=== PATIENT | female | born 1970 | race Caucasian/White ===

== ENCOUNTER → 2016-08-09 | Outpatient (CLI) | payer BC ==
[~2016-08-09] MED LIST: PRENTAB26 PO
--- NOTE | 2016-08-09 12:32 | MAMMOGRAPHY REPORT ---
ULTRASOUND OF LEFT BREAST: 08/09/2016 CLINICAL HISTORY: 45-year-old woman presents for follow-up of a probably benign 2-3 mm hypoechoic ci rcumscribed mass in the 1:00 left breast. A previous diagnostic workup in the left breast demonstra elfego an facing asymmetry which was felt to represent normal overlapping tissue. This mass was incide ntally identified on ultrasound. COMPARISON: Comparison is made to exams dated: 12/21/2014 mammogram, 10/21/2013 mammogram, 10/16/2012 ma mmogram, and 10/10/2011 mammogram - [facility]. FINDINGS: Targeted ultrasound was performed in the 1:00 left breast to reevaluate the benign-appear ing circumscribed rounded hypoechoic solid versus cystic mass. It is again identified in the 1:00 a xis, 1 cm from the nipple. It is hypoechoic, circumscribed and there is no significant posterior sh adowing or posterior acoustic enhancement. No significant increased vascularity. Current measureme nts are 2.2 x 2.6 x 2.8 mm. Previous measurements were 2.8 x 2.6 mm and this is considered stable. Another short interval follow-up is recommended in 6 more months. Annual bilateral screening mammo graphy is also due at that time. IMPRESSION: ACR-BI-RADS CATEGORY 3: PROBABLY BENIGN - FOLLOW-UP RECOMMENDED The small circumscribed hypoechoic 2.8 mm mass in the 1:00 left breast is stable compared to the mallika or ultrasound and most likely representing, gated cyst or benign mass such as a fibroadenoma. Anoth er short interval follow-up targeted ultrasound is recommended in 6 months. Annual bilateral screen ing mammography is also due at that time. These results and recommendations were discussed with the patient at the time of the exam. Rachel Villarreal M.D. ay/:08/09/2016 10:19:35 Boat Out[employer]: Nae LEGER)(M), [facility] letter sent: Follow Up Recommended 3 BI-RADS Code: ACR-BI-RADS Category 3: Probably Benign
== END | disposition home or self-care (01) ==
LOC: C.MAMM 09:22
PROVIDERS: ATTEND Obstetrics & Gynecology
DX: N63 Unspecified lump in breast (principal)

== ENCOUNTER → 2017-02-02 | Outpatient (CLI) | payer BC ==
--- NOTE | 2017-02-02 13:42 | MAMMOGRAPHY REPORT ---
BILATERAL DIGITAL DIAGNOSTIC MAMMOGRAM TOMOSYNTHESIS WITH CAD AND TARGETED LEFT ULTRASOUND: 02/02/2017 CLINICAL HISTORY: Six-month follow-up of the left breast mass seen on ultrasound. Also due for routi ne bilateral mammography. The patient reports no current complaints. TECHNIQUE: Breast tomosynthesis in addition to standard 2D mammography was performed. Current study was also evaluated with a Computer Aided Detection (CAD) system. Bilateral CC and MLO 2-D and tomosy nthesis images were obtained. COMPARISON: Comparison is made to exams dated: 08/09/2016 ultrasound, 02/09/2016 mammogram, 02/09/2016 ultrasound, 01/31/2016 mammogram, 12/21/2014 mammogram, and 10/16/2012 mammogram - [facility]. BREAST COMPOSITION: The tissue of both breasts is heterogeneously dense, which may obscure small mas ses. FINDINGS: There are no suspicious masses, calcifications, or areas of architectural distortion seen mammographically. There has been no significant interval change compared to prior exams. Targeted ultrasound was performed of the area of the previously seen mass in the left breast at 1:00, 1 cm from the nipple. Again noted is a round circumscribed hypoechoic cystic-appearing 3 x 2 x 3 mm mass. The mass is stable dating back to the 02/09/2016 exam. Given the benign morphology and stabil ity, the mass is considered benign and likely represents a cyst. IMPRESSION: ACR BI-RADS CATEGORY 2: BENIGN, TARGETED ULTRASOUND ACR BI-RADS CATEGORY 2: BENIGN Circumscribed benign-appearing 3 mm mass in the left breast at 1:00 is stable dating back to the Jan exam, and is considered benign given the morphology and stability and felt to represent a cyst. There is no mammographic or targeted sonographic evidence of malignancy. A 1 year screening ma mmogram is recommended. The patient has been verbally notified of the results. Approximately 10% of breast cancers are not detected with mammography. A negative mammographic report should not delay biopsy if a clinically suggestive mass is present. Grace Eaton M.D. /:02/02/2017 09:50:31 [employer]: Danna PICKARD(Radha)(Toribio), [facility] letter sent: Normal 1/2 BI-RADS Code: ACR BI-RADS Category 2: Benign Ultrasound BI-RADS: ACR BI-RADS Category 2: Benign
== END | disposition home or self-care (01) ==
LOC: C.MAMM 09:16
PROVIDERS: ATTEND Obstetrics & Gynecology
DX: N63 Unspecified lump in breast (principal)

== ENCOUNTER → 2017-03-29 | Outpatient (CLI) | payer BC | END | disposition home or self-care (01) | LOC: C.PAPS 13:55 | PROVIDERS: ATTEND Obstetrics & Gynecology | DX: Z01.419 Encounter for gynecological examination (general) (routine) without abnormal findings (principal) ==

== ENCOUNTER → 2017-06-30 | Outpatient (CLI) | payer OTHER | END | disposition home or self-care (01) | LOC: C.LAB 08:59 | PROVIDERS: ATTEND Obstetrics & Gynecology | DX: R39.15 Urgency of urination (principal) ==